=== PATIENT | male | born 1945 | race Caucasian/White ===

== ENCOUNTER 2021-03-06 09:46 | Emergency (ER) | payer OTHER, MEDICARE ==
--- NOTE | 2021-03-06 10:40 | EDM.PDOC ---
<ByronNeema - Last Filed: 03/06/21 11:06> ED HPI GENERAL MEDICAL PROBLEM - General Chief Complaint: Skin Complaint Stated Complaint: [facility] Time Seen by Provider: 03/06/21 09:48 Source of Information: Reports: Patient, Significant Other (- Gina) - History of Present Illness INITIAL COMMENTS - FREE TEXT/NARRATIVE: Mr. Alfredo Clarke is a 75-year-old male who presents to the ER for evaluation of right hernia. He is accompanied by his Varinder. He reports the hernia started 3 months ago and has progressively gotten larger. He rates the pain a 5/10, and it does not radiate. He denies any pain or burning with urination. He does not remember any episodes of straining or heavy lifting. He has a regular bowel movement this morning. PMHx includes a deep brain stimulator implant. Onset: Gradual Duration: Other (Months) - Related Data Allergies Allergy/AdvReac Type Severity Reaction Status Date / Time No Known Allergies Allergy Verified 03/06/21 10:14 Home Meds: Home Meds Carbidopa/Levodopa [Carbidopa-Levo 25-100 mg Odt] 1 each PO ASDIRECTED 03/06/21 [History] Omeprazole 20 mg PO BID 03/06/21 [History] atorvaSTATin [Lipitor] 10 mg PO BEDTIME 03/06/21 [History] ED ROS GENERAL - Review of Systems Review Of Systems: Comprehensive ROS is negative, except as noted in HPI. Constitutional: Reports: No Symptoms HEENT: Reports: No Symptoms Respiratory: Reports: No Symptoms Cardiovascular: Reports: No Symptoms Endocrine: Reports: No Symptoms GI/Abdominal: Denies: Constipation, Diarrhea : Reports: Other (Right sided hernia) Musculoskeletal: Reports: No Symptoms Skin: Reports: No Symptoms Neurological: Reports: No Symptoms Psychiatric: Reports: No Symptoms ED EXAM, SKIN/RASH Exam: See Below Exam Limited By: No Limitations General Appearance: Alert, No Apparent Distress Head: Atraumatic Neck: Normal Inspection Respiratory/Chest: No Respiratory Distress, Lungs Clear, Normal Breath Sounds Cardiovascular: Regular Rate, Rhythm, No Edema GI/Abdominal: Normal Bowel Sounds, Soft, Non-Tender (Male) Exam: Hernia (Right sided) Course - Re-Assessments/Exams Free Text/Narrative Re-Assessment/Exam: 03/06/21 11:09 Initial orders include CBC, CMP, UA and [address] imaging was discussed with patient and . expressed concern about deep brain stimulator and CT. Decision to do xray instead. Departure - Departure Disposition: Home, Self-Care 01 Clinical Impression: Right inguinal hernia - Discharge Information Referrals: Carmella Pena MD [Primary Care Provider] - 1 Week Forms: ED Department Discharge Additional Instructions: If you have more pain in the groin, try to lay down and put your feet up and put gentle pressure on the area. If that does not help, please return. Sepsis Event Note (ED) - Evaluation Sepsis Screening Result: No Definite Risk <Shane Geller - Last Filed: 03/06/21 12:18> Course - Vital Signs Last Recorded V/S: Last Vital Signs Temp 98.7 F 03/06/21 10:06 Pulse 71 03/06/21 10:06 Resp 20 03/06/21 10:06 BP 123/66 03/06/21 10:06 Pulse Ox 97 03/06/21 10:06 - Orders/Labs/Meds Orders: Active Orders 24 hr Category Date Time Status Abdomen 2V AP Flat Upright [CR] Stat Exams 03/06/21 10:56 Taken Labs: Laboratory Tests 03/06/21 03/06/21 03/06/21 Range/Units 11:25 11:25 11:31 WBC 6.87 (4.23-9.07) K/mm3 RBC 5.02 (4.63-6.08) M/mm3 Hgb 13.9 (13.7-17.5) gm/dl Hct 43.4 (40.1-51.0) % MCV 86.5 (79.0-92.2) fl MCH 27.7 (25.7-32.2) pg MCHC 32.0 L (32.2-35.5) g/dl RDW Std Deviation 46.2 H (35.1-43.9) fL Plt Count 270 (163-337) K/mm3 MPV 8.6 L (9.4-12.3) fl Neut % (Auto) 67.4 (34.0-67.9) % Lymph % (Auto) 21.4 L (21.8-53.1) % [place] % (Auto) 9.9 (5.3-12.2) % Eos % (Auto) 0.9 (0.8-7.0) Baso % (Auto) 0.3 (0.1-1.2) % Neut # (Auto) 4.63 (1.78-5.38) K/mm3 Lymph # (Auto) 1.47 (1.32-3.57) K/mm3 [place] # (Auto) 0.68 (0.30-0.82) K/mm3 Eos # (Auto) 0.06 (0.04-0.54) K/mm3 Baso # (Auto) 0.02 (0.01-0.08) K/mm3 Sodium 143 (136-145) mEq/L Potassium 4.1 (3.5-5.1) mEq/L Chloride 108 H (98-107) mEq/L Carbon Dioxide 31 (21-32) mEq/L Anion Gap 8.1 (5-15) BUN 21 H (7-18) mg/dL Creatinine 1.1 (0.7-1.3) mg/dL Est Cr Clr Drug Dosing 61.76 mL/min Estimated GFR (MDRD) > 60 (>60) mL/min BUN/Creatinine Ratio 19.1 H (14-18) Glucose 102 H (70-99) mg/dL Calcium 8.4 L (8.5-10.1) mg/dL Total Bilirubin 1.3 H (0.2-1.0) mg/dL AST 19 (15-37) U/L ALT 14 L (16-63) U/L Alkaline Phosphatase 82 (46-116) U/L Total Protein 6.9 (6.4-8.2) g/dl Albumin 3.3 L (3.4-5.0) g/dl Globulin 3.6 gm/dL Albumin/Globulin Ratio 0.9 L (1-2) Urine Color Yellow (Yellow) Urine Appearance Clear (Clear) Urine pH 6.5 (5.0-8.0) Ur Specific [place] 1.025 (1.005-1.030) Urine Protein Negative (Negative) Urine Glucose (UA) Negative (Negative) Urine Ketones Negative (Negative) Urine Occult Blood Negative (Negative) Urine Nitrite Negative (Negative) Urine Bilirubin Negative (Negative) Urine Urobilinogen 0.2 (0.2-1.0) Ur Leukocyte Esterase Negative (Negative) Urine RBC 0-5 (0-5) /hpf Urine WBC 10-20 H (0-5) /hpf Ur Squamous Epith Cells Not seen (0-5) /hpf Urine Bacteria Few (FEW) /hpf Urine Mucus Not seen (FEW) /hpf - Re-Assessments/Exams Free Text/Narrative Re-Assessment/Exam: 03/06/21 12:15 I examined the patient myself I agreed with Neema's assessment and plan. His CB C and CMP look good. The x-ray looks good. [facility] and [facility] and they will put a referral in for a surgical consult. Departure - Departure Time of Disposition: 12:20 Condition: Good - Discharge Information *PRESCRIPTION DRUG MONITORING PROGRAM REVIEWED*: Not Applicable *COPY OF PRESCRIPTION DRUG MONITORING REPORT IN PATIENT GHULAM: Not Applicable Sepsis Event Note (ED) - Focused Exam Vital Signs: Vital Signs Temp Pulse Resp BP Pulse Ox 03/06/21 10:06 98.7 F 71 20 123/66 97 - My Orders Last 24 Hours: My Active Orders 03/06/21 10:56 Abdomen 2V AP Flat Upright [CR] Stat - Assessment/Plan Last 24 Hours: My Active Orders 03/06/21 10:56 Abdomen 2V AP Flat Upright [CR] Stat
--- NOTE | 2021-03-06 13:53 | CR ---
EXAM: XR ABDOMEN 2 VIEWS COMPLETE LOCATION: [facility] DATE/TIME: 03/06/2021 11:05 AM INDICATION: Right inguinal hernia, abdomen pain COMPARISON: None. IMPRESSION: Negative abdomen. Bowel gas pattern is normal. Nothing for obstruction or free air. No evidence for renal stones. Mild osteoarthrosis of both hips. The articular contours of the humeral heads are smooth. Small lumbar degenerative osteophytes. SIGNED BY: David Rascon MD 03/06/2021 12:46 PM [facility]
== END 2021-03-06 12:40 | disposition home or self-care (01) ==
LOC: JD.ED 09:46 → EDBD 09:46 → JD.ED 12:40
DX: K40.90 Unilateral inguinal hernia, without obstruction or gangrene, not specified as recurrent (principal)
CPT/HCPCS: 36415; 74019; 74019-26; 80053; 81001; 85025; 99283

== ENCOUNTER 2021-05-01 09:32 | Day surgery (SDC) | payer OTHER ==
[~2021-05-01 09:32] MED LIST: Bupivacaine 0.5% 30 ML SDV ONE; Lactated Ringers 1,000 ML IV SCH; Lidocaine 1%/Sod Bicarbonate in NS 8.4% 1 ML Syringe IDERM PRN; Sodium Chloride 0.9% 10 ML Syringe FLUSH PRN; Sodium Chloride 0.9% 10 ML Syringe FLUSH SCH
[2021-05-01] MEDS ORDERED: Propofol 200 MG/20 ML SDV ONE ×2 (09:50→11:03)
[2021-05-01] MEDS ORDERED: Midazolam 1 MG/ML 2 ML SDV ONE (09:51)
[2021-05-01] MEDS ORDERED: fentaNYL 100 MCG/2 ML SDV ONE (09:51)
[2021-05-01] MEDS ORDERED: Ondansetron 4 MG/2 ML SDV ONE (09:59)
[2021-05-01] MEDS ORDERED: Lidocaine 1% 4 ML ONE (10:00)
[2021-05-01] MEDS ORDERED: ceFAZolin 1 GM Vial ONE (10:04)
[2021-05-01] MEDS ORDERED: fentaNYL 100 MCG/2 ML SDV IVPUSH PRN (12:19)
[2021-05-01] MEDS ORDERED: HYDROmorphone 0.5 MG/0.5 ML Syringe IVPUSH PRN (12:19)
[2021-05-01] MEDS ORDERED: Ondansetron 4 MG/2 ML SDV IVPUSH PRN (12:19)
== END 2021-05-01 13:55 | disposition home or self-care (01) ==
LOC: JD.SDS 09:32
PROVIDERS: ATTEND Surgery
DX: K40.90 Unilateral inguinal hernia, without obstruction or gangrene, not specified as recurrent (principal); F41.9 Anxiety disorder, unspecified; G20 Parkinson's disease; Z88.8 Allergy status to other drugs, medicaments and biological substances; Z79.899 Other long term (current) drug therapy; Z98.890 Other specified postprocedural states
CPT/HCPCS: 00830; 99100; C1781; J0690; J2250; J2405; J2704; J3010; J3490; J7120

== ENCOUNTER 2022-06-17 05:48 | Emergency (ER) | payer OTHER ==
[2022-06-17] MEDS ORDERED: Acetaminophen 325 MG Tab PO ONE ×2 (08:25)
== END 2022-06-17 08:37 | disposition home or self-care (01) ==
LOC: JD.ED 05:48
DX: S50.02XA Contusion of left elbow, initial encounter (principal); Z88.8 Allergy status to other drugs, medicaments and biological substances; W19.XXXA Unspecified fall, initial encounter
CPT/HCPCS: 73060; 73080; 73090; 99283; A9270

== ENCOUNTER 2023-11-28 11:35 | Emergency (ER) | payer OTHER ==
[2023-11-28 12:59] LABS: BASOPHILS PERCENT AUTO 0.3 % (0.0-1.0); EOSINOPHILS ABSOLUTE AUTO 0.1 K/mm3 (0.0-0.4); EOSINOPHILS PERCENT AUTO 0.7 % (0.0-6.0); HEMATOCRIT 41.3 % (42.0-52.0); HEMOGLOBIN 13.3 gm/dl (14.0-18.0); IMMATURE GRAN ABSOLUTE AUTO 0.02 K/mm3 (0.00-0.05); IMMATURE GRAN PERCENT AUTO 0.3 % (0.0-0.4); LYMPHOCYTES ABSOLUTE AUTO 1.2 K/mm3 (1.0-4.8); LYMPHOCYTES PERCENT AUTO 16.5 % (24.0-44.0); MEAN CORPUSCULAR HEMOGLOBIN 27.7 pg (28.0-32.0); MEAN CORPUSCULAR HGB CONC 32.2 g/dl (32.0-36.0); MEAN PLATELET VOLUME 9.2 fl (9.4-12.4); MONOCYTES ABSOLUTE AUTO 0.8 K/mm3 (0.0-0.8); MONOCYTES PERCENT AUTO 10.2 % (0.0-8.0); NEUTROPHILS ABSOLUTE AUTO 5.3 K/mm3 (1.8-7.7); PLATELET COUNT,PLT 211 K/mm3 (150-400); WHITE BLOOD CELL COUNT,WBC 7.32 K/mm3 (3.9-11.3)
== END 2023-11-28 13:35 | disposition home or self-care (01) ==
LOC: JD.ED 11:35
DX: S50.361A Insect bite (nonvenomous) of right elbow, initial encounter (principal); Z86.16 Personal history of COVID-19; Z79.899 Other long term (current) drug therapy; Z88.6 Allergy status to analgesic agent; Z88.9 Allergy status to unspecified drugs, medicaments and biological substances
CPT/HCPCS: 36415; 85025; 99282